=== PATIENT | male | born 1950 | race Caucasian/White ===

== ENCOUNTER 2019-12-08 00:16 | Emergency (ER) | payer OTHER, SELFPAY | END 2019-12-08 00:32 | disposition left against medical advice (07) | LOC: MADERS 00:16 | DX: Z53.21 Procedure and treatment not carried out due to patient leaving prior to being seen by health care provider (principal) | CPT/HCPCS: 36416 ==

== ENCOUNTER 2024-08-10 13:53 | Emergency (ER) | payer SELFPAY | END 2024-08-10 17:24 | disposition home or self-care (01) | LOC: MADERS 13:53 | DX: K64.4 Residual hemorrhoidal skin tags (principal); K59.00 Constipation, unspecified; I10 Essential (primary) hypertension; E10.9 Type 1 diabetes mellitus without complications; E78.00 Pure hypercholesterolemia, unspecified; Z87.891 Personal history of nicotine dependence; Z79.899 Other long term (current) drug therapy; Z79.84 Long term (current) use of oral hypoglycemic drugs | CPT/HCPCS: 99283 ==